=== PATIENT | female | born 1975 | race Caucasian/White ===

== ENCOUNTER 2019-12-02 07:58 | Outpatient (CLI) | payer OTHER ==
--- NOTE | 2019-12-02 08:17 | RAD ---
EXAM: 2 views of the thoracic spine HISTORY: Upper back pain for months COMPARISON: None FINDINGS: 2 views of the thoracic spine shows normal height and alignment of the vertebral bodies and intervertebral discs without fracture or subluxation. No significant degenerative changes are seen. IMPRESSION: No significant thoracic spine abnormality.
== END 2019-12-02 07:59 | disposition home or self-care (01) ==
LOC: SCSRAD 07:58
PROVIDERS: ATTEND Chiropractor
DX: M54.6 Pain in thoracic spine (principal)
CPT/HCPCS: 72072

== ENCOUNTER 2024-04-21 18:23 | Outpatient (CLI) | payer BC, OTHER | END 2024-04-21 18:24 | disposition home or self-care (01) | LOC: SCSRAD 18:23 | PROVIDERS: ATTEND Nurse Practitioner Family | DX: S69.91XA Unspecified injury of right wrist, hand and finger(s), initial encounter (principal); M25.512 Pain in left shoulder ==